=== PATIENT | male | born 1970 | race Caucasian/White ===

== ENCOUNTER 2021-04-26 19:43 | Observation (INO) | payer BC ==
[2021-04-26 21:02] LABS: ALBUMIN 3.8 g/dl (3.4-5.0); BLOOD UREA NITROGEN 21.3 mg/dL (7-18); CALCIUM 8.3 mg/dL (8.5-10.1)
[2021-04-26 21:04] LABS: CREATININE 1.3 mg/dL (0.55-1.3)
[2021-04-26 21:06] LABS: BILIRUBIN,TOTAL 1.2 mg/dL (0.2-1); TOT PROT 6.9 g/dl (6.4-8.2)
[2021-04-26 21:28] LABS: EOS % 5.1 % (0-4.5); HEMATOCRIT 45.6 % (35.4-49); HEMOGLOBIN 16.8 GM/dL (11.7-16.9); MCH 32.4 pg (25.7-33.7); MCHC 36.9 g/dl (32.0-35.9); MEAN CELL VOLUME 87.8 fl (80-96); MEAN PLT VOLUME 9.1 fl (7.5-11.1); MONO % 7.1 % (3.8-10.2); NEUT % 52.8 % (42.8-82.8); PLATELET COUNT 196 10^3/uL (134-434); RBC 5.19 M/mm3 (4.00-5.60); RDW 12.8 % (11.9-15.9); WHITE BLOOD COUNT 8.2 K/mm3 (4.0-10.0)
[2021-04-26 21:40] LABS: INR 1.17 (0.83-1.09); PROTHROMBIN TIME (PATIENT) 13.5 SEC (9.7-13.0)
[2021-04-26] MEDS ORDERED: ACETAMINOPHEN 325 MG TABLET (FP) PO PRN (23:01)
[2021-04-26] MEDS ORDERED: POLYETHYLENE GLYCOL (HEALTHYLAX) 3350 17 GM PACKET PO PRN (23:01)
[2021-04-26 23:32] VITALS: BMI 26.6
[2021-04-27] MEDS: HEPARIN NA (PORCINE) 5,000 UNITS/ML 1ML VIAL SQ SCH ×2 (06:17→15:14)
[2021-04-27 10:21] LABS: BASO % 0.9 % (0-2.0); EOS % 4.8 % (0-4.5); HEMATOCRIT 44.8 % (35.4-49); HEMOGLOBIN 15.9 GM/dL (11.7-16.9); LYMPH % 35.1 % (8-40); MCH 31.4 pg (25.7-33.7); MCHC 35.6 g/dl (32.0-35.9); MEAN CELL VOLUME 88.2 fl (80-96); MEAN PLT VOLUME 9.2 fl (7.5-11.1); MONO % 6.5 % (3.8-10.2); NEUT % 52.7 % (42.8-82.8); PLATELET COUNT 175 10^3/uL (134-434); RBC 5.08 M/mm3 (4.00-5.60); RDW 12.9 % (11.9-15.9); WHITE BLOOD COUNT 6.3 K/mm3 (4.0-10.0)
[2021-04-27 10:44] LABS: BLOOD UREA NITROGEN 19.7 mg/dL (7-18); CALCIUM 8.8 mg/dL (8.5-10.1)
[2021-04-27 10:46] LABS: CREATININE 1.2 mg/dL (0.55-1.3)
[2021-04-27 14:05] VITALS: BP 127/80; PULSE 73; TEMP 98.5
== END 2021-04-27 17:38 | disposition home or self-care (01) ==
LOC: FER 19:43 → FM/S 22:26
PROVIDERS: ADMIT Hospitalist; ATTEND Nurse Practitioner Acute Care
PROC: 3E023GC Introduction of Other Therapeutic Substance into Muscle, Percutaneous Approach (ICD-10-PCS; principal; 2021-04-26)
DX: I48.91 Unspecified atrial fibrillation (principal); C80.1 Malignant (primary) neoplasm, unspecified; Z29.9 Encounter for prophylactic measures, unspecified
CPT/HCPCS: 36415; 71045-TC-FY; 80048; 80053; 83735; 84484; 85025; 85610; 85730; 93005; 99285-25; C9803-CS; G0378; J1644; U0003; U0005